=== PATIENT | female | born 1990 | race African-American/Black ===

== ENCOUNTER 2016-10-06 09:01 | Emergency (ER) | payer MEDICAID ==
[~2016-10-06] VITALS: Ht 167.6 cm; Wt 71.0 kg
[2016-10-06 09:26] VITALS: BP 124/71
== END 2016-10-06 10:49 | disposition home or self-care (01) ==
LOC: ER 09:57
DX: L04.9 Acute lymphadenitis, unspecified (principal)
CPT/HCPCS: 99283

== ENCOUNTER 2016-10-29 06:57 | Emergency (ER) | payer MEDICAID ==
[~2016-10-29] VITALS: Ht 167.6 cm; Wt 74.0 kg
[2016-10-29] MEDS ORDERED: KETOROLAC 30MG/ML VIAL IV ONE (07:30)
[2016-10-29 07:42] LABS: BASOPHILS % 0.3 % (0.0-2.0); EOSINOPHILS % 1.4 % (0.0-5.0); HEMATOCRIT. 34.1 % (36.0-48.0); HEMOGLOBIN. 11.5 g/dL (12.0-16.0); LYMPHOCYTES % 31.9 % (20.0-50.0); MEAN CORPUSCULAR HEMOGLOBIN 25.9 pg (28.0-32.0); MEAN CORPUSCULAR VOLUME 76.8 fL (81.0-99.0); MEAN PLATELET VOLUME 8.5 fl (7.4-10.4); NEUTROPHILS % 59.4 % (40.0-76.0); PLATELET 258 x1000/uL (130-400); RED BLOOD CELL COUNT 4.44 mill/uL (4.2-5.4)
[2016-10-29 07:51] LABS: CHLORIDE 106 mEq/L (98-107)
[2016-10-29 08:07] LABS: CARBON DIOXIDE 25 mEq/L (21-32)
[2016-10-29 08:14] LABS: B-HCG QUANTITATIVE 19549 mIU/mL (<3)
[2016-10-29 11:05] VITALS: BP 106/60
== END 2016-10-29 11:12 | disposition home or self-care (01) ==
LOC: ER 07:17
DX: O03.4 Incomplete spontaneous abortion without complication (principal)
CPT/HCPCS: 36415; 76801; 76817; 80048; 84702; 85025; 86850; 86900; 86901; 96374; 99285; J1885; Z7610

== ENCOUNTER 2018-10-29 08:51 | Emergency (ER) | payer MEDICAID, OTHER ==
[~2018-10-29] VITALS: Ht 167.6 cm; Wt 54.0 kg
[2018-10-29 09:56] LABS: BASOPHILS % 0.7 % (0.0-2.0); EOSINOPHILS % 0.7 % (0.0-5.0); HEMATOCRIT. 35.1 % (36.0-48.0); HEMOGLOBIN. 12.1 g/dL (12.0-16.0); MEAN CORPUSCULAR HEMOGLOBIN 28.3 pg (28.0-32.0); MEAN CORPUSCULAR VOLUME 82.4 fL (81.0-99.0); MEAN PLATELET VOLUME 8.8 fl (7.4-10.4); MONOCYTES % 7.1 % (2.0-8.0); NEUTROPHILS % 54.5 % (40.0-76.0); PLATELET 206 x1000/uL (130-400); RED BLOOD CELL COUNT 4.26 mill/uL (4.2-5.4); RED CELL DISTRIBUTION WIDTH 12.8 % (11.6-14.6)
[2018-10-29 10:00] LABS: CHLORIDE 106 mEq/L (98-107)
[2018-10-29 10:50] LABS: B-HCG QUANTITATIVE 17283 mIU/mL (<3)
[2018-10-29 12:18] VITALS: BP 102/63
== END 2018-10-29 12:19 | disposition home or self-care (01) ==
LOC: ER 09:11
DX: O20.0 Threatened abortion (principal); Z3A.12 12 weeks gestation of pregnancy; Z98.890 Other specified postprocedural states
CPT/HCPCS: 36415; 76801; 81025; 84702; 86850; 86900; 99284